=== PATIENT | female | born 1950 | race Caucasian/White ===

== ENCOUNTER 2021-10-26 07:06 | Day surgery (SDC) | payer MEDICARE, OTHER ==
[2021-10-26] MEDS ORDERED: Propofol 200 MG/20 ML SDV ONE (07:30)
[2021-10-26] MEDS ORDERED: Midazolam 1 MG/ML 2 ML SDV ONE (07:30)
[2021-10-26] MEDS ORDERED: fentaNYL 100 MCG/2 ML SDV ONE (07:30)
[2021-10-26] MEDS ORDERED: Sodium Chloride 0.9% 1,000 ML IV SCH (07:45)
[2021-10-26] MEDS ORDERED: ceFAZolin 2 GM in Premix Bag 1 BAG IV ONE (08:45)
[2021-10-26 10:22] VITALS: BP 129/93; PULSE 91
--- NOTE | 2021-10-27 07:36 | OR ---
DATE OF PROCEDURE: 10/26/2021 SURGEON: Tim Laboy MD PROCEDURE: Colonoscopy. FINDINGS: Normal colonoscopy. PREOPERATIVE DIAGNOSIS: Family history of colorectal cancer. POSTOPERATIVE DIAGNOSIS: Family history of colorectal cancer. RISKS: Risks, benefits, alternatives, and limitations including, but not limited to, infection, perforation, false positives, and false negatives were all explained to the patient who wished to proceed. PROCEDURE IN DETAIL: The patient was placed left lateral decubitus position. Digital rectal exam was performed without abnormality. Colonoscope was introduced and advanced atraumatically to the ileocecal valve. A photo was taken. The scope was brought back to the ascending, transverse, descending colon, and retroflexed. No evidence of old or new blood. No masses. No polyps. No diverticulosis. No evidence of colitis. No abnormalities when retroflexed. Greater than 8 minutes was spent removing the scope. Prep was acceptable, approximately 90% of the luminal surface could be seen. The patient tolerated the procedure well. Recommend repeat colonoscopy in 5 years. Tim Laboy MD /[id number]
== END 2021-10-26 10:20 | disposition home or self-care (01) ==
LOC: JP.SDS 07:06
PROVIDERS: ATTEND Surgery
DX: Z12.11 Encounter for screening for malignant neoplasm of colon (principal); E78.5 Hyperlipidemia, unspecified; Z80.0 Family history of malignant neoplasm of digestive organs; Z88.8 Allergy status to other drugs, medicaments and biological substances
CPT/HCPCS: G0105; J0690; J2250; J2704; J3010; J7030